=== PATIENT | female | born 1945 | race Caucasian/White ===

== ENCOUNTER → 2023-09-24 12:07 | Outpatient (REF) | payer OTHER, SELFPAY | LOC: WDC 12:07 | PROVIDERS: ATTENDING PHYSICIAN Internal Medicine | DX: Z12.31 Encounter for screening mammogram for malignant neoplasm of breast (principal) | CPT/HCPCS: 77063; 77067 ==

== ENCOUNTER → 2024-04-12 06:36 | Day surgery (SDC) | payer OTHER, SELFPAY ==
[2024-04-12 09:50] LABS: Glucose - Point of Care 111 mg/dl (70-99)
== END ==
LOC: GI 06:36
PROVIDERS: ATTENDING PHYSICIAN Internal Medicine Gastroenterology; FAMILY PHYSICIAN Internal Medicine
DX: Z12.11 Encounter for screening for malignant neoplasm of colon (principal); D12.0 Benign neoplasm of cecum; K57.30 Diverticulosis of large intestine without perforation or abscess without bleeding; K64.8 Other hemorrhoids; Z86.010 Personal history of colon polyps; Z80.0 Family history of malignant neoplasm of digestive organs
CPT/HCPCS: 45385; 88305; 82962

== ENCOUNTER → 2024-09-26 13:33 | Outpatient (REF) | payer OTHER, SELFPAY | LOC: WDC 13:33 | PROVIDERS: ATTENDING PHYSICIAN Obstetrics & Gynecology; FAMILY PHYSICIAN Internal Medicine | DX: Z12.31 Encounter for screening mammogram for malignant neoplasm of breast (principal) | CPT/HCPCS: 77063; 77067 ==

== ENCOUNTER → 2025-07-18 08:52 | Outpatient (REF) | payer OTHER, SELFPAY | LOC: HWRAD 08:52 | PROVIDERS: ATTENDING PHYSICIAN Internal Medicine | DX: Z78.0 Asymptomatic menopausal state (principal) | CPT/HCPCS: 77080 ==